=== PATIENT | female | born 1990 | race Hispanic/Latino ===

== ENCOUNTER 2023-01-25 20:34 | Emergency (ER) | payer SELFPAY ==
[~2023-01-25] VITALS: Ht 160 cm; Wt 71.9 kg
[2023-01-25] MEDS ORDERED: KETOROLAC TROMETHAMINE 30 MG/ML VIAL IV STA (21:37)
[2023-01-25] MEDS: ONDANSETRON HCL INJ 2MG/ML 2ML 2 MG/ML VIAL IV STA ×2 (21:41→21:46)
[2023-01-25] MEDS ORDERED: ONDANSETRON HCL INJ 2MG/ML 2ML 2 MG/ML VIAL ONE (21:44)
[2023-01-25] MEDS ORDERED: KETOROLAC TROMETHAMINE 30 MG/ML VIAL ONE (21:44)
[2023-01-25] MEDS ORDERED: SODIUM CHLORIDE 0.9% 1000ML 1,000 ML ONE (21:45)
[2023-01-25] MEDS ORDERED: CEFTRIAXONE 1 GM VIAL ONE (21:45)
[2023-01-25] MEDS ORDERED: SODIUM CHLORIDE 0.9% 1000ML 1,000 ML IV SCH (21:45)
[2023-01-26 00:21] VITALS: O2SAT 99
[2023-01-26] MEDS ORDERED: CEFUROXIME500 MG PO (00:27)
== END 2023-01-26 00:21 | disposition home or self-care (01) ==
LOC: FSED 20:37
DX: R10.32 Left lower quadrant pain (principal); N30.90 Cystitis, unspecified without hematuria; E11.65 Type 2 diabetes mellitus with hyperglycemia; Z98.84 Bariatric surgery status
CPT/HCPCS: 74176; 80048; 80076; 81003; 81025; 85025; 99284; J0696; J1885; J2405; J7030; 87086